=== PATIENT | male | born 1940 | race Caucasian/White ===

== ENCOUNTER 2018-04-11 16:33 | Emergency (ER) | payer MEDICARE, MEDICAID ==
[~2018-04-11] VITALS: Ht 165.1 cm; Wt 90.7 kg
[2018-04-11 16:40] VITALS: Ht 165.1 cm; Wt 90.7 kg
[2018-04-11 17:36] LABS: microscopic required? YES; urine erythrocyte 2+ (NEGATIVE)
[2018-04-11 18:22] LABS: CALCIUM 8.1 mg/dL (8.5-10.1); CARBON DIOXIDE 27.6 mmol/L (21-32); CHLORIDE SERUM 102 mmol/L (98-107); CREATININE SERUM 1.6 mg/dL (0.7-1.3); GLUCOSE SERUM 125 mg/dL (74-106); POTASSIUM SERUM 3.7 mmol/L (3.5-5.1); SODIUM SERUM 138 mmol/L (136-145)
[2018-04-11 18:26] LABS: ALKALINE PHOSPHATASE 92 U/L (46-116); ALT/SGPT 24 U/L (16-63); AST/SGOT 24 U/L (15-37); BILIRUBIN TOTAL 0.63 mg/dL (0.20-1.00)
[2018-04-11 18:27] LABS: ALBUMIN 2.4 g/dL (3.4-5.0); PLATELET COUNT 127 x10^3mcL (130-400); RED CELL DISTRIBUTION WIDTH 15.7 % (11.5-14.5)
[2018-04-11 18:44] LABS: BAND NEUTROPHIL 2 % (0-10); MONOCYTE 8 % (0-7); SEGMENTED NEUTROPHILS 87 % (37-75)
[2018-04-11 18:46] LABS: PLATELET MORPHOLOGY PLATELETS DECREASED; rbc morphology (normal/abnorm) NORMAL (NORMAL)
[2018-04-11 20:28] VITALS: BP 149/89
== END 2018-04-11 20:50 | disposition short-term general hospital (02) ==
LOC: ED 16:33
PROVIDERS: Emergency Medicine
DX: A41.9 Sepsis, unspecified organism (principal); N39.0 Urinary tract infection, site not specified; J18.9 Pneumonia, unspecified organism; N28.9 Disorder of kidney and ureter, unspecified; F17.210 Nicotine dependence, cigarettes, uncomplicated; N40.0 Benign prostatic hyperplasia without lower urinary tract symptoms; I45.10 Unspecified right bundle-branch block; E86.0 Dehydration; R09.02 Hypoxemia; I25.10 Atherosclerotic heart disease of native coronary artery without angina pectoris; I10 Essential (primary) hypertension; Z85.51 Personal history of malignant neoplasm of bladder; Z98.890 Other specified postprocedural states
CPT/HCPCS: 36600; 83880; 87804; J1956; J2930; J7030; J7613; J7644; Q0092